=== PATIENT | female | born 1985 | race Caucasian/White ===

== ENCOUNTER 2016-06-21 03:01 | Emergency (ER) | payer OTHER ==
[2016-06-21 03:09] VITALS: BP 99/71
[2016-06-21] MEDS ORDERED: Tobramycin 0.3% OPHTH.SOL* 5 ML BOT (regular eye drops) BOTH EYES ONE (03:15)
--- NOTE | 2016-06-21 03:25 | ED ---
Jorge Matthews Anna, scribed for Sascha Bolaños MD on 06/21/16 at 0319 . Throat Pain/Nasal Congestion - HPI Summary HPI Summary: Patient is a 31 y/o female coming to [facility] presenting with the gradual onset of constant bilateral eye irritation that began early this morning. She describes the severity of the pain as 2/10. Her eyes are erythematous, pruritic, dry, painful, and contain goop. She additionally has rhinorrhea. The patient was diagnosed with influenza six days ago. The patient visited a friends house recently who had pink eye. 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 - Accompanied by Onset/Duration: Gradual Onset, Lasting Hours, Still Present Severity: Moderate Associated Signs And Symptoms: Positive: Nasal Discharge - Allergies/Home Medications Allergies/Adverse Reactions: Allergies Allergy/AdvReac Type Severity Reaction Status Date / Time No Known Allergies Allergy Verified 06/21/16 03:20 Home Medications: Home Medications NK [No Home Medications Reported] 06/21/16 [History Confirmed 06/21/16] PMH/Surg Hx/FS Hx/Imm Hx Previously Healthy: Yes Cardiovascular History: Denies: Hx Atrial Fibrillation Respiratory History: Denies: Hx Pulmonary Edema GI History: Denies: Hx Cirrhosis Infectious Disease History: No Infectious Disease History: Denies: Traveled Outside the [place] in Last 30 Days - Family History Known Family History: Negative: Cardiac Disease, Hypertension, Diabetes, Seizure Disorder - Social History Occupation: Employed Full-time Lives: With Family Alcohol Use: Rare Substance Use Type: Reports: None Smoking Status (MU): Never Smoked Tobacco Review of Systems Eyes: Other - pruritic, dry, painful, and contain goop" Positive: Erythema Positive: Nasal Discharge Psychological: Normal All Other Systems Reviewed And Are Negative: Yes Physical Exam Triage Information Reviewed: Yes Vital Signs On Initial Exam: Initial Vitals Temp Pulse Resp BP Pulse Ox 97.2 F 74 12 99/71 97 06/21/16 03:07 06/21/16 03:07 06/21/16 03:07 06/21/16 03:07 06/21/16 03:07 Vital Signs Reviewed: Yes Appearance: Positive: Well-Appearing Skin: Positive: Warm Head/Face: Positive: Normal Head/Face Inspection Eyes: Positive: EOMI, Conjunctiva Inflammed - bilat conj injection ENT: Positive: Hearing grossly normal Neurological: Positive: Sensory/Motor Intact, Alert, Oriented to Person Place, Time, Normal Gait Psychiatric: Positive: Affect/Mood Appropriate Diagnostics - Vital Signs Vital Signs Temp Pulse Resp BP Pulse Ox 06/21/16 03:07 97.2 F 74 12 99/71 97 - Laboratory Lab Statement: Any lab studies that have been ordered have been reviewed, and results considered in the medical decision making process. EENT Course/Dx - Course Assessment/Plan: Patient is a 31 y/o female coming to [facility] presenting with bilateral eye irritation that began early this morning. She describes the severity of the pain as 2/10. Her eyes are erythematous, pruritic, dry, painful , and contain goop. The patient was diagnosed with influenza six days ago. The patient visited a friends house recently who had pink eye. Patient will be discharged with follow up from primary care physician and instructions for use of azithromycin drops. Patient is agreeable with plan. - Diagnoses Provider Diagnoses: Conjunctivitis Discharge - Discharge Plan Condition: Stable Disposition: HOME Patient Education Materials: Conjunctivitis (ED) Referrals: [facility]YSICIAN REFERRAL [Outside] Additional Instructions: Use 2 drops of the azithromycin 3 times a day. Follow up with your primary care provider within 48 hours. Return to the Emergency Department for new or worsening symptoms. The documentation as recorded by the Jorge milan Anna accurately reflects the service I personally performed and the decisions made by , Sascha Bolaños MD.
== END 2016-06-21 03:27 | disposition home or self-care (01) ==
LOC: ED 03:01
DX: H10.9 Unspecified conjunctivitis (principal); L53.9 Erythematous condition, unspecified
CPT/HCPCS: 99281; A9270-GY